=== PATIENT | female | born 2000 | race Two or more races ===

== ENCOUNTER 2022-12-02 20:47 | Emergency (ER) | payer OTHER ==
[~2022-12-02] VITALS: Ht 157.5 cm; Wt 84.0 kg
[2022-12-02 20:55] VITALS: BP 134/84
[2022-12-02 21:51] LABS: BASOPHILS % 0.5 % (0.0-2.0); HEMATOCRIT. 37.2 % (36.0-48.0); HEMOGLOBIN. 12.7 g/dL (12.0-16.0); LYMPHOCYTES % 30.3 % (20.0-50.0); MEAN CORPUSCULAR HEMOGLOBIN 30.1 pg (28.0-32.0); MEAN CORPUSCULAR VOLUME 88.2 fL (81.0-99.0); MEAN PLATELET VOLUME 6.8 fl (7.4-10.4); MONOCYTES % 7.7 % (2.0-8.0); NEUTROPHILS % 60.5 % (40.0-76.0); PLATELET 392 x1000/uL (130-400); RED BLOOD CELL COUNT 4.22 mill/uL (4.2-5.4); RED CELL DISTRIBUTION WIDTH 15.7 % (11.6-14.6)
[2022-12-02 21:57] LABS: CHLORIDE 105 mEq/L (98-107)
[2022-12-02 22:08] LABS: B-HCG QUANTITATIVE 941 mIU/mL (<3)
[2022-12-02 23:17] LABS: CLARITY URINE CLEAR (CLEAR); COLOR URINE YELLOW (YELLOW); KETONES URINE NEGATIVE (NEGATIVE); LEUKOCYTE ESTERASE URINE NEGATIVE (NEGATIVE); NITRITE URINE NEGATIVE (NEGATIVE); OCCULT BLOOD URINE NEGATIVE (NEGATIVE); PROTEIN URINE NEGATIVE (NEGATIVE); SPECIFIC GRAVITY URINE 1.022 (1.005-1.030); UROBILINOGEN URINE 0.2 E.U./dL (0.2-1.0)
[2022-12-02] MEDS ORDERED: PNV1TAB.3 MT (23:33)
== END 2022-12-02 23:45 | disposition home or self-care (01) ==
LOC: ER 20:47
DX: Z33.1 Pregnant state, incidental (principal); J45.909 Unspecified asthma, uncomplicated
CPT/HCPCS: 36415; 76801; 80053; 81003; 81025; 84702; 85025; 86850; 86900; 99284

== ENCOUNTER 2022-12-17 15:54 | Emergency (ER) | payer OTHER ==
[~2022-12-17] VITALS: Ht 157.5 cm; Wt 84.5 kg
[~2022-12-17 15:54] MED LIST: PNV1TAB.3 MT
[2022-12-17 16:07] VITALS: BP 137/73
== END 2022-12-17 18:30 | disposition home or self-care (01) ==
LOC: ER 15:54
DX: Z33.1 Pregnant state, incidental (principal); J45.909 Unspecified asthma, uncomplicated
CPT/HCPCS: 36415; 76801; 84702; 99284

== ENCOUNTER 2024-01-29 17:50 | Emergency (ER) | payer OTHER ==
[~2024-01-29] VITALS: Ht 160 cm; Wt 92.3 kg
[2024-01-29] MEDS ORDERED: ALBU6.7H15 INH (19:49)
[2024-01-29 19:57] VITALS: PULSE 95; RESP 18; O2SAT 98
[2024-01-29] MEDS: IPRATROPIUM/ALBUTEROL 0.5-3(2.5)MG/3ML NEB HHN ONE (19:57)
[2024-01-29 21:23] VITALS: BP 136/79; PULSE 89; RESP 20; TEMP 98.7
== END 2024-01-29 21:27 | disposition home or self-care (01) ==
LOC: ER 17:50
DX: J45.901 Unspecified asthma with (acute) exacerbation (principal); R05.9 Cough, unspecified
CPT/HCPCS: 94640; 99283; Z7610 ×3

== ENCOUNTER 2024-10-16 17:25 | Emergency (ER) | payer OTHER ==
[~2024-10-16] VITALS: Ht 165.1 cm; Wt 84.5 kg
[~2024-10-16 17:25] MED LIST changes: +ALBU6.7H15 INH
[2024-10-16 17:27] VITALS: O2SAT 99
[2024-10-16 17:32] VITALS: BP 123/75; PULSE 102; RESP 16; TEMP 36.9; O2SAT 100
[2024-10-16] MEDS ORDERED: PSEU120T56 MT (19:03)
[2024-10-16] MEDS ORDERED: P20 PO (19:03)
[2024-10-16] MEDS ORDERED: ALBU18HF2 IH (19:03)
[2024-10-16] MEDS: PREDNISONE 20MG TABLET PO STA (19:20)
== END 2024-10-16 19:22 | disposition home or self-care (01) ==
LOC: ER 17:47
DX: J06.9 Acute upper respiratory infection, unspecified (principal); B97.89 Other viral agents as the cause of diseases classified elsewhere; J45.909 Unspecified asthma, uncomplicated; Z79.52 Long term (current) use of systemic steroids; Z79.899 Other long term (current) drug therapy
CPT/HCPCS: 99283; 71045; 93005; J7512

== ENCOUNTER 2024-12-07 11:14 | Emergency (ER) | payer OTHER ==
[~2024-12-07] VITALS: Ht 156.2 cm; Wt 85.0 kg
[~2024-12-07 11:14] MED LIST changes: +ALBU18HF2 IH; +P20 PO; +PSEU120T56 MT
[2024-12-07 12:05] VITALS: PULSE 91; RESP 20; O2SAT 98
[2024-12-07] MEDS: IPRATROPIUM/ALBUTEROL 0.5-3(2.5)MG/3ML NEB HHN ONE (12:05)
[2024-12-07] MEDS: PREDNISONE 20MG TABLET PO ONE (12:15)
[2024-12-07] MEDS ORDERED: ALBU18HF2 IH (13:16)
[2024-12-07] MEDS ORDERED: P50 MT (13:16)
[2024-12-07 13:45] VITALS: BP 132/72; PULSE 91; RESP 20; TEMP 37.1; O2SAT 98
== END 2024-12-07 13:46 | disposition home or self-care (01) ==
LOC: ER 11:14
DX: J45.901 Unspecified asthma with (acute) exacerbation (principal); Z79.899 Other long term (current) drug therapy
CPT/HCPCS: 94640; 99283; J7512; Z7610 ×3; 94070; 94664